=== PATIENT | female | born 1965 | race Caucasian/White ===

== ENCOUNTER 2016-08-20 10:34 | Inpatient (IN) | payer OTHER ==
[~2016-08-20] VITALS: Ht 160 cm; Wt 95.0 kg
[~2016-08-20 10:34] MED LIST: AMLODIPINE BESYL5 MG PO; COREG12.5 MG PO; FERROUS SULFAT325 M1 PO; LOSARTAN POTAS100 MG PO; PANTOPRAZOLE SO40 MG PO; SIMVASTATIN40 MG PO; VICODIN EQUIVAL1 TAB PO
--- NOTE | 2016-08-20 13:33 | ED ORDER SUMMARY ---
..... Patient: KYLE MARVIN OrderSheet [facility] VisitID: [id number] [place] [address] 51y, F Registration Date/Time: 08/20/2016 ORDER SHEET Weight: 95.2 kg (stated) Allergies: Amoxicillin GENERAL ORDERS: CBC w Diff Urgent (10:52 08/20/2016 Rbo Rushing) (Ack 10:57 KHoerner) (11:20 JBoardley R.N.) CMP Urgent (10:08/20/2016 Rob Rushing) (Ack 10:57 HOMAoerner) (11:20 JBoardley R.N.) UA-Culture if indicated Urgent (10:52 08/20/2016 Rob Rushing) (Ack 10:57 Eduard) (11:02 JBoardley R.N.) Amylase Urgent (10:08/20/2016 Rob Rushing) (Ack 10:57 HOMAoerner) (11:20 JBoardley R.N.) Lipase Urgent (10:52 08/20/2016 Rob Rushing) (Ack 10:57 HOMAoechinyerener) (11:20 JBoardley R.N.) MEDICATION ORDERS: IV FLUIDS: IV NS : initial bolus none -, then 1000 mL/hr for X1 (NOW) (10:52 08/20/2016 Rob Rushing) (Ack 10:54 JBoardley R.N.) (11:15 JBoardley R.N.) Zofran IV 4 mg (NOW) (11:18 08/20/2016 JBoardley R.N. per protocol) (11:18 JBoardley R.N.) Demerol IV 25 mg (HIGH ALERT MEDICATION, NOW) (11:18 08/20/2016 JBoardley R.N. per protocol) (11:18 JBoardley R.N.) IV Lactated Ringers : initial bolus none -, then 200 mL/hr (NOW) (12:17 08/20/2016 Rob Rushing) (12:19 JBoardley R.N.) ORDER SHEET NOTES: [Electronically signed by Murtaza Mccarty Dr. (13:35 08/20/2016)] [Electronically signed by Arvin Garcia R.N. (15:59 08/20/2016)] [Electronically locked/signed by Arvin Garcia R.N. (15:59 08/20/2016)]
--- NOTE | 2016-08-20 13:33 | ED ORDER SUMMARY ---
..... Patient: KYLE MARVIN OrderSheet [facility] VisitID: [id number] [place] [address] 51y, F Registration Date/Time: 08/20/2016 ORDER SHEET Weight: 95.2 kg (stated) Allergies: Amoxicillin GENERAL ORDERS: CBC w Diff Urgent (10:52 08/20/2016 Rob Rushing) (Ack 10:57 KHoerner) (11:20 JBoardley R.N.) CMP Urgent (10:08/20/2016 Rob Rushing) (Ack 10:57 HOMAoerner) (11:20 JBoardley R.N.) UA-Culture if indicated Urgent (10:52 08/20/2016 Rob Rushing) (Ack 10:57 Eduard) (11:02 JBoardley R.N.) Amylase Urgent (10:08/20/2016 Rob Rushing) (Ack 10:57 HOMAoerner) (11:20 JBoardley R.N.) Lipase Urgent (10:52 08/20/2016 Rob Rushing) (Ack 10:57 HOMAoechinyerener) (11:20 JBoardley R.N.) MEDICATION ORDERS: IV FLUIDS: IV NS : initial bolus none -, then 1000 mL/hr for X1 (NOW) (10:52 08/20/2016 Rob Rushing) (Ack 10:54 JBoardley R.N.) (11:15 JBoardley R.N.) Zofran IV 4 mg (NOW) (11:18 08/20/2016 JBoardley R.N. per protocol) (11:18 JBoardley R.N.) Demerol IV 25 mg (HIGH ALERT MEDICATION, NOW) (11:18 08/20/2016 JBoardley R.N. per protocol) (11:18 JBoardley R.N.) IV Lactated Ringers : initial bolus none -, then 200 mL/hr (NOW) (12:17 08/20/2016 Rob Rushing) (12:19 JBoardley R.N.) ORDER SHEET NOTES: [Electronically signed by Murtaza Mccarty Dr. (13:35 08/20/2016)] [Electronically signed by Arvin Garcia R.N. (15:59 08/20/2016)] [Electronically locked/signed by Arvin Garcia R.N. (15:59 08/20/2016)]
--- NOTE | 2016-08-20 13:33 | ED NURSING NOTES ---
Clinical Report - Nurses [facility] [address] [place] [address] 08/20/2016 10:34 Patient: KYLE MARVIN TRIAGE Triage time 10:46. Acuity: LEVEL 3. Chief Complaint: ABDOMINAL PAIN. 10:46 08/20/16. 10:46 08/20/16. Alert. No acute distress. ( RUQ pain that started last night at 2130. Pt was seen and [facility] and sent to this ER as pt had elevated blood tests.). SEPSIS SCREEN: Sepsis Screen. Negative (no infection suspected/documented). --10:53 Arvin Garcia R.N. 10:46 08/20/16. BP: 161/89. HR: 82. RR: 18. O2 saturation: 99% on room air. Temp: 98.1 F (oral). Pain level now: 12/08. --10:53 Arvin Garcia R.N. Weight: 95.2 kg stated. Height/Length: 63 inches Per Patient. BMI: 37.2. --10:52 Arvin Garcia R.N. Medications Coreg Oral 12.5 mg, 2x a day. --10:47 Arvin Garcia R.N. Furosemide Oral 20 mg, daily. --10:48 Arvin Garcia R.N. AmLODIPine Besylate Oral 5 mg, daily. --10:48 Arvin Garcia R.N. Medication/allergy information source: the patient. --10:53 Arvin Garcia R.N. Allergies Amoxicillin. --10:48 Arvin Garcia R.N. History Arrived by private vehicle. 10:46 08/20/16. Treatment OUTPATIENT PHYSICAL THERAPIST ASSISTANT: None. PAST MEDICAL HX: The patient has had a hysterectomy. Immunizations not up to date. SOCIAL HX: Never smoker. Occasional alcohol use. No drug use. No recent travel. No infectious disease exposure. No known contact with a sick individual. ABUSE ASSESSMENT: No report of abuse. FALL RISK ASSESSMENT: Fall risk assessment completed. No fall risk identified. NUTRITIONAL RISK ASSESSMENT: The nutritional risk assessment revealed no deficiencies. FUNCTIONAL ASSESSMENT: Functional assessment: no impairments noted. LEARNING NEEDS ASSESSMENT: The learning needs assessment revealed no barriers. SKIN INTEGRITY ASSESSMENT: Skin integrity risk assessment completed. No skin integrity risk identified. --10:53 Arvin Garcia R.N. PROBLEMS: Pancreatitis. Hematoma. Syncope. Pulmonary Embolism. Hypertension. --10:52 Arvin Garcia R.N. ADDITIONAL SURGERIES: Hysterectomy. Parotidectomy. Tumor removal of parotid gland. --10:52 Arvin Garcia R.N. Assessment 10:46 08/20/16. --10:53 Arvin Garcia R.N. Interventions 10:46 08/20/16. 10:46 08/20/16. ID and allergy band on patient. To treatment room. --10:53 Arvin Garcia R.N. PHYSICAL ASSESSMENT 10:53 08/20/16. Ambulatory to room. GENERAL / NEURO / PSYCH: Alert. Oriented X 4. Appears in pain. RESPIRATORY: Respirations not labored. CVS: Capillary refill less than 2 seconds. GI / : Abdominal tenderness in the right upper quadrant. SKIN: Skin is warm and dry. --10:53 Arvin Garcia R.N. NURSING PROGRESS NOTES 10:54 08/20/16. The plan of care for this patient has been created. Pulse oximeter and NIBP monitor placed on patient; monitor alarms on. Patient gowned. Head of bed elevated. Two patient identifiers checked. Call light placed in reach. Side rails up x 2. Bed placed in lowest position. Brakes of bed on. --10:54 Arvin Garcia R.N. 10:54 08/20/16. Patient ready for evaluation- chart flagged and notification provided. --10:54 Arvin Garcia R.N. 11:03 08/20/16. Patient ID band checked for patient name and birthdate: patient confirmed. Instructions provided to collect clean catch urine and patient verbalized understanding. Clean catch urine collected with return of yellow-colored urine; sample sent to lab for urinalysis and culture. Specimen labeled in the presence of the patient. --11:03 Arvin Garcia R.N. 11:05 08/20/2016 Site #1 started via IV in the right antecubital space with an 20g angiocath, with aseptic technique and good blood return; two attempts. Saline lock flushed with 10 mL saline (unable to draw blood). --11:15 Arvin Garcia R.N. 11:15 08/20/2016 Started bag #1 1000 mL IV Fluids IV NS (Saline); at 1000 mL/hr over 1 hour(s) via site #1. Allergies verified and confirmed 5 rights. Completed per protocol. --11:15 Arvin Garcia R.N. 11:18 08/20/2016 Zofran (Ondansetron HCl) IVP 4 mg given over 2 minute(s) via site #1. Allergies verified and confirmed 5 rights. IV patency established. IV site checked: no pain, redness, or swelling. IV flushed thoroughly pre- and post-medication administration. IVP given by RN. --11:18 Arvin Garcia R.N. 11:18 08/20/2016 Demerol (Meperidine HCl) IVP 25 mg given over 2 minute(s) via site #1. Allergies verified and confirmed 5 rights. IV patency established. IV site checked: no pain, redness, or swelling. IV flushed thoroughly pre- and post-medication administration. IVP given by RN. --11:19 Arvin Garcia R.N. 11:08/20/16. ( Labs drawn by labor relations director). --11:21 Arvin Garcia R.N. 11:08/20/16. --11:21 Arvin Garcia R.N. 11:08/20/16. BP: 151/76. HR: 79. RR: 16. O2 saturation: 98% on room air. Pain level now: 12/08. --11:21 Arvin Garcia R.N. 11:08/20/16. Patient and family informed about reason for wait and about plan of care. --11:21 Arvin Garcia R.N. 11:35 08/20/16. --11:35 Arvin Garcia R.N. 11:34 08/20/16. BP: 151/76. HR: 70. RR: 14. O2 saturation: 97% on room air. --11:35 Arvin Garcia R.N. 11:35 08/20/16. Patient informed about reason for wait and about plan of care. --11:35 Arvin Garcia R.N. 11:35 08/20/16. Patient waiting for lab results. --11:35 Arvin Garcia R.N. 11:37 08/20/16. --11:38 Arvin Garcia R.N. 11:37 08/20/16. Pain level now: 09/08. --11:38 Arvin Garcia R.N. 11:38 08/20/16. Reassessment after medication administered. She has had no adverse reaction. Overall patient status is improved- she states feels better. --11:38 Arvin Garcia R.N. 12:04 08/20/16. --12:04 Arvin Garcia R.N. 12:04 08/20/16. BP: 126/68. HR: 69. RR: 14. O2 saturation: 99% on room air. --12:04 Arvin Garcia R.N. 11:56 08/20/2016 IV Fluids IV NS Discontinued: bag #1 infused. Total amount infused: 1000 mL. IV patency established. IV site checked: no pain, redness, or swelling. IV flushed thoroughly. --12:06 Arvin Garcia R.N. 12:06 08/20/16. Patient and family informed about reason for wait and about plan of care. --12:06 Arvin Garcia R.N. 12:14 08/20/2016 Started bag #1 1000 mL IV Fluids IV LACTATED RINGERS; at 200 mL/hr over 5 hour(s) via site #1 via IV pump. Allergies verified and confirmed 5 rights. IV patency established. IV site checked: no pain, redness, or swelling. IV flushed thoroughly pre- and post-medication administration. Completed per protocol. --12:19 Arvin Garcia R.N. 12:20 08/20/16. --12:20 Arvin Garcia R.N. 12:19 08/20/16. BP: 125/70. HR: 75. RR: 14. O2 saturation: 98% on room air. --12:20 Arvin Garcia R.N. 12:20 08/20/16. Patient and family informed about reason for wait and about plan of care. --12:20 Arvin Garcia R.N. 12:20 08/20/16. Patient waiting for lab results. --12:20 Arvin Garcia R.N. 14:24 08/20/16. ( Tried to call report, RN unavailable). --14:24 Arvin Garcia R.N. 14:51 08/20/16. ( Manav form completed). --14:51 Arvin Garcia R.N. DISPOSITION / DISCHARGE 14:24 08/20/16. Patient's personal items include, pants, sweatshirt, no weapons, no meds, no money. --14:24 Arvin Garcia R.N. 14:41 08/20/2016 Site #[address] upon admission; patent. --14:41 Arvin Garcia R.N. 14:42 08/20/16. The goals identified in the patient's plan of care were met. Report was given to a nurse via a phone call. Report included patient's care, treatment, medications, reviewed medication reconcilliation, and condition (including any recent changes or anticipated changes). Report was acknowledged and care was transferred. Bed obtained. FALL RISK ASSESSMENT: Fall risk assessment completed. No fall risk identified. --14:42 Arvin Garcia R.N. 14:41 08/20/16. BP: 123/72. HR: 66. RR: 14. O2 saturation: 99% on room air. Temp: 98 F (oral). Pain level now: 07/11. --14:42 Arvin Garcia R.N. 14:51 08/20/16. Departure time: 14:51. --14:51 Arvin Garcia R.N. Locked/Released at 08/20/2016 15:59 by Arvin Garcia R.N.
--- NOTE | 2016-08-20 13:33 | ED CLINICAL REPORT ---
Clinical Report - Physicians/Mid Levels [facility] [address] [place] [address] 08/20/2016 10:34 Patient: KYLE MARVIN Time Seen: 10:50; initial patient contact. Arrived- By private vehicle. Historian- patient. HISTORY OF PRESENT ILLNESS Chief Complaint: ABDOMINAL PAIN. At its maximum, severity described as moderate. When seen in the E.D., severity described as mild. Modifying factors- worsened by food. Not relieved by anything. It is described as sharp and it is described as located in the epigastric area and radiating to the upper back. This started last night and is still present. It was gradual in onset and has been intermittent. The patient has had nausea, loss of appetite and vomiting. No diarrhea. Similar symptoms previously: Several times. Recent medical care: The patient was seen recently in a clinic. ( Amylase > 2000, lipase 2266, AST/ALT 23/34 Alk Phos 53, WBC 9). REVIEW OF SYSTEMS No constipation, fever or difficulty breathing. She has had chills. All systems otherwise negative, except as recorded above. PAST HISTORY Pancreatitis. Hematoma. Syncope. Pulmonary Embolism. Hypertension. SURGERIES: Hysterectomy. Parotidectomy. Tumor removal of parotid gland. SOCIAL HISTORY Never smoker. Occasional alcohol use. No drug use. ADDITIONAL NOTES The nursing notes have been reviewed with agreement regarding the chief complaint, PMH and patient medications and allergies. PHYSICAL EXAM Vital Signs: 08/20/2016 10:46 BP: 161/89. HR: 82. RR: 18. O2 saturation: 99%. Temp: 98.1 F. Pain level now: 7/10. Have been reviewed. Hypertensive. Heart rate normal. Respiratory rate normal. Temperature normal. Oxygen saturation normal. Appearance: Alert. Oriented X3. No acute distress. Eyes: Eyes normal inspection. No scleral icterus. ENT: Dry mucous membranes present. CVS: Normal heart rate and rhythm. Heart sounds normal. Respiratory: No respiratory distress. Breath sounds normal. Abdomen: Soft. Moderate tenderness in the epigastric area with guarding present. No rebound tenderness or Blank's sign present. Bowel sounds normal. No organomegaly. No mass. Back: Normal inspection. Skin: Normal skin color. No rash. Extremities: No lower extremity edema. Neuro: Oriented X 3. LABS, X-RAYS, AND EKG Laboratory Tests: UA-Culture if indicated: (CATHY: 08/20/2016 10:50) ( [facility] 08/20/2016 11:18) Final results Test Result Flag Units (Reference) URINE COLOR YELLOW URINE APPEARANCE CLEAR URINE GLUCOSE NEGATIVE (NEGATIVE) URINE BILIRUBIN NEGATIVE (NEGATIVE) URINE KETONE NEGATIVE (NEGATIVE) URINE SPECIFIC GRAVITY 1.025 (1.010-1.030) URINE PH 6.0 (5.0-8.0) URINE PROTEIN 3+ (NEGATIVE) URINE UROBILINOGEN 0.2 EU/dL (0.2-1.0) URINE NITRITE NEGATIVE (NEGATIVE) URINE BLOOD NEGATIVE (NEGATIVE) URINE LEUK ESTERASE NEGATIVE (NEGATIVE) URINE RBC NONE SEEN rbc/hpf (0-1) URINE WBC 5-10 wbc/hpf (0-1) URINE EPITHELIAL CELLS 3-5 EPI/hpf (0-5) URINE BACTERIA MODERATE (2+ TO 3+) (NONE SEEN) URINE COMMENT CULTURE INDICATED 10-15 HYALINE CASTS/lpf3+ MUCOUSURINE CULTURES ARE SET-UP BASED ON THE FOLLOWING CRITERIA:POSITIVE NITRITEPOSITIVE LEUKOCYTE ESTERASEGREATER THAN 10 WHITE BLOOD CELLSMODERATE (2+) OR GREATER BACTERIA CBC w Diff: (CATHY: 08/20/2016 11:22) ( [facility] 08/20/2016 11:34) Final results Test Result Flag Units (Reference) WHITE BLOOD COUNT 9.0 K/uL (4.5-11.5) RED BLOOD COUNT 4.77 M/uL (4.00-5.20) HEMOGLOBIN 13.0 gm/dL (12.0-16.0) HEMATOCRIT 38.7 % (36.0-46.0) MEAN CELL VOLUME 81 fL (80-100) MEAN CORPUSCULAR HGB 27 pg (26-34) MEAN CORPUSCULAR HGB CONC 34 g/dL (31-37) RED CELL DISTRIBUTION WIDTH 14.4 % (11.6-14.8) PLATELET COUNT 295 K/uL (150-400) NEUTROPHIL % 71.9 % (50-75) LYMPH % 16.2 L % (25-40) MONO % 10.3 % (3-14) EOSINOPHIL % 1.1 % (0-4) BASOPHIL % 0.5 % (0-2) CMP: (CATHY: 08/20/2016 11:22) ( MsgRcvd 08/20/2016 12:29) Final results Test Result Flag Units (Reference) GLUCOSE 110 mg/dL (70-110) BUN 22 H mg/dL (7-18) CREATININE 1.4 H mg/dL (0.6-1.3) Estimated GFR 41.97 mL/min Estimated GFR- 50.87 mL/min Note: Persistent reduction over 3 months in eGFR<60 mL/min/1.73 m2 defines CKD. Patients with eGFR values>=60 mL/min/1.73 m2 may also have CKD if evidence ofpersistent proteinuria. Additional information may be foundat www.kidney.org. SODIUM 140 mmol/L (136-145) POTASSIUM 3.7 mmol/L (3.5-5.1) CHLORIDE 104 mmol/L (98-107) CARBON DIOXIDE 26 mmol/L (21-32) CALCIUM 9.1 mg/dL (8.5-10.1) TOTAL PROTEIN 7.3 g/dL (6.4-8.2) ALBUMIN 3.6 g/dL (3.3-5.0) BILIRUBIN, TOTAL 0.4 mg/dL (0.0-1.0) ALKALINE PHOSPHATASE 54 U/L (46-116) AST (SGOT) 24 U/L (15-37) ALT (SGPT) 44 U/L (12-78) AMYLASE 1780 H U/L (25-115) LIPASE 56831 H U/L (73-393) . PROGRESS AND PROCEDURES Discussed case with hospitalist, (call returned 13:31 Dr. Em). Reviewed test results and need for additional work-up. Agreed upon treatment plan and decision to place in observation. Health care provider will see patient in hospital. Disposition: Condition: good. CLINICAL IMPRESSION Acute idiopathic pancreatitis. Acute renal insufficiency. INSTRUCTIONS Follow-up: Blood pressure screening was not performed during this visit because the patient has an active diagnosis of hypertension. (Electronically signed by Murtaza Mccarty Dr. 08/20/2016 13:35)
--- NOTE | 2016-08-20 15:59 | ED MED RECONCILIATION SUMMARY ---
Patient: KYLE MARVIN Medication Reconciliation Report [facility] VisitID: [id number] [address] [place] [address] 51y, F Registration Date/Time: 08/20/2016 Weight: 95.2 kg Height/Length: 63 in. BMI: 37.2 ALLERGIES: Amoxicillin The patient's Home Medications are listed below: THE FOLLOWING MEDICATIONS NEED TO BE RECONCILED: AmLODIPine Besylate Oral 5 mg, daily Coreg Oral 12.5 mg, 2x a day Furosemide Oral 20 mg, daily The source(s) of the original Home Medication information: patient The following Medications were given to the patient in the Emergency Department: IV NS IV Fluids bolus 0, then 1000 mL/hr, administered: 08/20/2016 11:15:00 AM Zofran [IVP] IVP 4 mg, administered: 08/20/2016 11:18:00 AM Demerol [IVP] IVP 25 mg, administered: 08/20/2016 11:18:00 AM IV LACTATED RINGERS IV Fluids bolus 0, then 200 mL/hr, administered: 08/20/2016 12:14:00 PM The following Medications were prescribed to the patient: None.
--- NOTE | 2016-08-20 15:59 | ED DISCHARGE INSTRUCTIONS ---
Patient: KYLE MARVIN General Instructions [facility] VisitID: [id number] [address] [place] [address] 51y, F Registration Date/Time: 08/20/2016 Acute idiopathic pancreatitis. Acute renal insufficiency. INSTRUCTIONS Follow-up: Blood pressure screening was not performed during this visit because the patient has an active diagnosis of hypertension. (Electronically signed by Murtaza Mccarty Dr. 08/20/2016 13:35)
--- NOTE | 2016-08-20 15:59 | ED MAR SUMMARY ---
..... Medication Administration Record [facility] [address] [place] [address] Patient: KYLE MARVIN Visit ID: [id number] 51y, F Weight: 95.2 kg Height/Length: 63 in BMI: 37.2 ALLERGIES: Amoxicillin Start 11:15 08/20/2016 Arvin Garcia R.N., Stop 11:56 08/20/2016 Arvin Garcia R.N. Medication Administered: IV NS (SALINE), Dose: IV Fluids over 1 hour(s), Rate: 1000 mL/hr, Dispensed: 1000 mL bag, Site: #1 right AC. Medication Ordered: IV NS : initial bolus none -, then 1000 mL/hr for X1 (NOW). Given 11:18 08/20/2016 Arvin Garcia R.N. Medication Administered: ZOFRAN [IVP] (ONDANSETRON HCL), Dose: 4 mg IVP over 2 minute(s), Site: #1 right AC. Medication Ordered: Zofran IV 4 mg (NOW). Given 11:18 08/20/2016 Arvin Garcia R.N. Medication Administered: DEMEROL [IVP] (MEPERIDINE HCL), Dose: 25 mg IVP over 2 minute(s), Site: #1 right AC. Medication Ordered: Demerol IV 25 mg (HIGH ALERT MEDICATION, NOW). Start 12:14 08/20/2016 Arvin Garcia R.N. Medication Administered: IV LACTATED RINGERS, Dose: IV Fluids over 5 hour(s), Rate: 200 mL/hr, Dispensed: 1000 mL bag, Site: #1 right AC. Medication Ordered: IV Lactated Ringers : initial bolus none -, then 200 mL/hr (NOW).
--- NOTE | 2016-08-20 15:59 | ED MAR SUMMARY ---
..... Medication Administration Record [facility] [address] [place] [address] Patient: KYLE MARVIN Visit ID: [id number] 51y, F Weight: 95.2 kg Height/Length: 63 in BMI: 37.2 ALLERGIES: Amoxicillin Start 11:15 08/20/2016 Arvin Garcia R.N., Stop 11:56 08/20/2016 Arvin Garcia R.N. Medication Administered: IV NS (SALINE), Dose: IV Fluids over 1 hour(s), Rate: 1000 mL/hr, Dispensed: 1000 mL bag, Site: #1 right AC. Medication Ordered: IV NS : initial bolus none -, then 1000 mL/hr for X1 (NOW). Given 11:18 08/20/2016 Arvin Garcia R.N. Medication Administered: ZOFRAN [IVP] (ONDANSETRON HCL), Dose: 4 mg IVP over 2 minute(s), Site: #1 right AC. Medication Ordered: Zofran IV 4 mg (NOW). Given 11:18 08/20/2016 Arvin Garcia R.N. Medication Administered: DEMEROL [IVP] (MEPERIDINE HCL), Dose: 25 mg IVP over 2 minute(s), Site: #1 right AC. Medication Ordered: Demerol IV 25 mg (HIGH ALERT MEDICATION, NOW). Start 12:14 08/20/2016 Arvin Garcia R.N. Medication Administered: IV LACTATED RINGERS, Dose: IV Fluids over 5 hour(s), Rate: 200 mL/hr, Dispensed: 1000 mL bag, Site: #1 right AC. Medication Ordered: IV Lactated Ringers : initial bolus none -, then 200 mL/hr (NOW).
--- NOTE | 2016-08-20 15:59 | ED MED RECONCILIATION SUMMARY ---
Patient: KYLE MARVIN Medication Reconciliation Report [facility] VisitID: [id number] [address] [place] [address] 51y, F Registration Date/Time: 08/20/2016 Weight: 95.2 kg Height/Length: 63 in. BMI: 37.2 ALLERGIES: Amoxicillin The patient's Home Medications are listed below: THE FOLLOWING MEDICATIONS NEED TO BE RECONCILED: AmLODIPine Besylate Oral 5 mg, daily Coreg Oral 12.5 mg, 2x a day Furosemide Oral 20 mg, daily The source(s) of the original Home Medication information: patient The following Medications were given to the patient in the Emergency Department: IV NS IV Fluids bolus 0, then 1000 mL/hr, administered: 08/20/2016 11:15:00 AM Zofran [IVP] IVP 4 mg, administered: 08/20/2016 11:18:00 AM Demerol [IVP] IVP 25 mg, administered: 08/20/2016 11:18:00 AM IV LACTATED RINGERS IV Fluids bolus 0, then 200 mL/hr, administered: 08/20/2016 12:14:00 PM The following Medications were prescribed to the patient: None.
--- NOTE | 2016-08-20 15:59 | ED DISCHARGE INSTRUCTIONS ---
Patient: KYLE MARVIN General Instructions [facility] VisitID: [id number] [address] [place] [address] 51y, F Registration Date/Time: 08/20/2016 Acute idiopathic pancreatitis. Acute renal insufficiency. INSTRUCTIONS Follow-up: Blood pressure screening was not performed during this visit because the patient has an active diagnosis of hypertension. (Electronically signed by Murtaza Mccarty Dr. 08/20/2016 13:35)
[2016-08-20 16:01] VITALS: BP 137/81
--- NOTE | 2016-08-20 16:08 | Progress Note ---
Subjective General Admission History and Physical Examination Patient Name: Jihan Sanz Admission Date: August 20, 2016 Primary Care Provider: Unknown Attending Physician: Jake Em M.D. Admitting Physician: Jake Em M.D. Code Status: Full Code Room: 301 SUBJECTIVE Historian: Patient Reliability: Good Chief Complaint: Abdominal pain History of Present Illness: The patient is a 51-year-old white female with a significant past medical history of hypertension, recurrent pancreatitis, hyperlipidemia, who presented to [facility] emergency department on the day of admission secondary to complaints of abdominal pain. [facility] ER evaluation was consistent with acute pancreatitis. Secondary to the above, the patient was admitted by Jake Em M.D. for further evaluation and treatment. PAST MEDICAL HISTORY Illnesses: 1. Hypertension 2. Hyperlipidemia 3. Recurrent pancreatitis 4. Iron deficiency anemia Allergies: 1. Penicillin 2. Tramadol Medications: 1. Coreg 12.5 mg by mouth twice a day 2. Furosemide 20 mg by mouth daily 3. Amlodipine 5 mg by mouth daily Surgery: 1. Hysterectomy 2. Chronic gland tumor removal Injuries: 1. No significant Hospitalizations: 1. For above surgery and medical problems FAMILY HISTORY Parents: 1. Father, Philip, , 64, hypertension, cancer type unknown, 2. Mother, Latonia, living, 81, hypertension Siblings: 1. Female, Carmen, living, 62, hypertension Children: 1. None Other significant family history: None SOCIAL HISTORY 1. Marital Status: 2. Jehovah'S Witness: None 3. Education: High school 4. 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 Tobacco: None 2. Drugs: None 3. Alcohol: 2 ounces per month 4. Caffeine: One cup coffee per day HEALTH SUPERVISION Item/Test 1. Vision screen: 2011 2. Cholesterol Profile: 2013 3. PSA: Not applicable 4. AURE: Not applicable 5. FOBT: 2013 6. Blood Glucose: 2016 7. Colonoscopy: 2013 8. History and physical exam: 2014 9. Audiogram: No recent 10. Mammogram: No recent 11. Pap/pelvic exam: No recent IMMUNIZATIONS: 1. Pneumococcal: No previous 2. Influenza: No previous 3. Tetanus: No previous ADVANCED DIRECTIVES: 1. Living well: No 2. POLST: No 3. Code Status: Full Code 4. Durable Power Duct Layer Health care: No 5. Donor card: Yes REVIEW OF SYSTEMS Remarkable for those things stated in the history of present illness and past medical history. Seventeen point review of system completed with the following notable findings: General: Abdominal pain Eyes: Decreased visual acuity requiring corrective lenses Cardiovascular: Ankle swelling, hypertension Gastrointestinal: Nausea/vomiting, loss of appetite, abdominal pain Physical Exam Vital Signs / I&Os Vital Signs Date Time Temp Pulse Resp B/P Pulse O2 O2 Flow FiO2 Ox Delivery Rate 08/20 1601 99.0 66 16 137/81 98 Room Air General Appearance Alert, Oriented X3, Cooperative, No acute distress HEENT Atraumatic, PERRLA, EOMI, Moist mucous membranes Lungs Clear to auscultation, Normal air movement Neck Supple, No JVD, No masses Cardiovascular Regular rate and rhythm, Normal S1 and S2, No murmurs, gallops, rubs Abdomen Normal bowel sounds, Soft, No masses, No hepatosplenomegaly, mild epigastic tenderness Extremities No cyanosis, No clubbing, No edema Neurological Cranial nerves intact, Strength 5/5 x4 ext's, No lateralizing signs Psych/Mental Status Mental status normal, Mood normal LAB Results Laboratory Tests 08/20 08/20 1122 1050 Chemistry Plasma Sodium (136 - 145 mmol/L) 140 Plasma Potassium (3.5 - 5.1 mmol/L) 3.7 Plasma Chloride (98 - 107 mmol/L) 104 CO2 (Enzymatic) (21 - 32 mmol/L) 26 BUN (7 - 18 mg/dL) 22 Creatinine (0.6 - 1.3 mg/dL) 1.4 Est GFR ( Amer) (mL/min) 50.87 Est GFR (Non-Af Amer) (mL/min) 41.97 Glucose (70 - 110 mg/dL) 110 Plasma Calcium (8.5 - 10.1 mg/dL) 9.1 Total Bilirubin (0.0 - 1.0 mg/dL) 0.4 AST (15 - 37 U/L) 24 ALT (12 - 78 U/L) 44 Alkaline Phosphatase (46 - 116 U/L) 54 Total Protein (6.4 - 8.2 g/dL) 7.3 Albumin (3.3 - 5.0 g/dL) 3.6 Amylase (25 - 115 U/L) 1780 Lipase (73 - 393 U/L) 29918 Hematology WBC (4.5 - 11.5 K/uL) 9.0 RBC (4.00 - 5.20 M/uL) 4.77 Hgb (12.0 - 16.0 gm/dL) 13.0 Hct (36.0 - 46.0 %) 38.7 MCV (80 - 100 fL) 81 MCH (26 - 34 pg) 27 RDW (11.6 - 14.8 %) 14.4 Neut % (Auto) (50 - 75 %) 71.9 Lymph % (Auto) (25 - 40 %) 16.2 Brantley % (Auto) (3 - 14 %) 10.3 Eos % (Auto) (0 - 4 %) 1.1 Baso % (Auto) (0 - 2 %) 0.5 Plt Count, EDTA (150 - 400 K/uL) 295 PUBS MCHC (31 - 37 g/dL) 34 Urines Urine Color YELLOW Urine Appearance CLEAR Urine pH (5.0 - 8.0) 6.0 Ur Specific Davis (1.010 - 1.030) 1.025 Urine Protein (NEGATIVE) 3+ Urine Ketones (NEGATIVE) NEGATIVE Urine Blood (NEGATIVE) NEGATIVE Urine Nitrite (NEGATIVE) NEGATIVE Urine Bilirubin (NEGATIVE) NEGATIVE Urine Urobilinogen (0.2 - 1.0 EU/dL) 0.2 Ur Leukocyte Esterase (NEGATIVE) NEGATIVE Urine RBC (0 - 1 rbc/hpf) NONE SEEN Urine WBC (0 - 1 wbc/hpf) 5-10 Ur Epithelial Cells (0 - 5 EPI/hpf) 3-5 Urine Bacteria (NONE SEEN) MODERATE (2+ TO 3+) Urine Glucose (NEGATIVE) NEGATIVE Urine Comment CULTURE INDICATED Microbiology Date/Time Procedure - Status Source Growth 08/20 1050 Urine Culture - RECD URINE CC Assessment and Plan Problem List 1. Acute pancreatitis Plan -Patient presents with findings of pancreatitis with elevation of amylase and lipase -IV fluid therapy, pain medications, antiemetics -Nothing by mouth secondary to nausea/vomiting -Ultrasound in a.m. -Check lipid profile -Monitor 2. Hypertension Status Chronic Onset Date Unknown Plan -Blood pressure well controlled -Continue outpatient medical regimen -Monitor -Low-salt diet when patient taking well orally -Weight reduction program 3. Iron deficiency anemia Status Acute Onset Date Unknown Plan -Patient with history of iron deficiency anemia -H&H stable -Check iron profile in a.m. -Monitor 4. Renal insufficiency Plan -Patient with findings of mild renal insufficiency -Monitor Current status: Fair-unstable Anticipated discharge date: Anticipated discharge in 4 days Anticipated discharge placement: Home Patient care time: Time spent in chart review, patient interview, physical exam, CPOE, and care documentation: 70 minutes Visit to patient today: 2 Complexity of care: High E&M Codes Admission: Inpt-High/[id number]
--- NOTE | 2016-08-20 16:08 | Progress Note ---
Subjective General Admission History and Physical Examination Patient Name: Jihan Sanz Admission Date: August 20, 2016 Primary Care Provider: Unknown Attending Physician: Jake Em M.D. Admitting Physician: Jake Em M.D. Code Status: Full Code Room: 301 SUBJECTIVE Historian: Patient Reliability: Good Chief Complaint: Abdominal pain History of Present Illness: The patient is a 51-year-old white female with a significant past medical history of hypertension, recurrent pancreatitis, hyperlipidemia, who presented to [facility] emergency department on the day of admission secondary to complaints of abdominal pain. [facility] ER evaluation was consistent with acute pancreatitis. Secondary to the above, the patient was admitted by Jake Em M.D. for further evaluation and treatment. PAST MEDICAL HISTORY Illnesses: 1. Hypertension 2. Hyperlipidemia 3. Recurrent pancreatitis 4. Iron deficiency anemia Allergies: 1. Penicillin 2. Tramadol Medications: 1. Coreg 12.5 mg by mouth twice a day 2. Furosemide 20 mg by mouth daily 3. Amlodipine 5 mg by mouth daily Surgery: 1. Hysterectomy 2. Chronic gland tumor removal Injuries: 1. No significant Hospitalizations: 1. For above surgery and medical problems FAMILY HISTORY Parents: 1. Father, Philip, , 64, hypertension, cancer type unknown, 2. Mother, Latonia, living, 81, hypertension Siblings: 1. Female, Carmen, living, 62, hypertension Children: 1. None Other significant family history: None SOCIAL HISTORY 1. Marital Status: 2. Hoahaoism: None 3. Education: High school 4. 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 Tobacco: None 2. Drugs: None 3. Alcohol: 2 ounces per month 4. Caffeine: One cup coffee per day HEALTH SUPERVISION Item/Test 1. Vision screen: 2011 2. Cholesterol Profile: 2013 3. PSA: Not applicable 4. AURE: Not applicable 5. FOBT: 2013 6. Blood Glucose: 2016 7. Colonoscopy: 2013 8. History and physical exam: 2014 9. Audiogram: No recent 10. Mammogram: No recent 11. Pap/pelvic exam: No recent IMMUNIZATIONS: 1. Pneumococcal: No previous 2. Influenza: No previous 3. Tetanus: No previous ADVANCED DIRECTIVES: 1. Living well: No 2. POLST: No 3. Code Status: Full Code 4. Durable Power Documentation Spec Health care: No 5. Donor card: Yes REVIEW OF SYSTEMS Remarkable for those things stated in the history of present illness and past medical history. Seventeen point review of system completed with the following notable findings: General: Abdominal pain Eyes: Decreased visual acuity requiring corrective lenses Cardiovascular: Ankle swelling, hypertension Gastrointestinal: Nausea/vomiting, loss of appetite, abdominal pain Physical Exam Vital Signs / I&Os Vital Signs Date Time Temp Pulse Resp B/P Pulse O2 O2 Flow FiO2 Ox Delivery Rate 08/20 1601 99.0 66 16 137/81 98 Room Air General Appearance Alert, Oriented X3, Cooperative, No acute distress HEENT Atraumatic, PERRLA, EOMI, Moist mucous membranes Lungs Clear to auscultation, Normal air movement Neck Supple, No JVD, No masses Cardiovascular Regular rate and rhythm, Normal S1 and S2, No murmurs, gallops, rubs Abdomen Normal bowel sounds, Soft, No masses, No hepatosplenomegaly, mild epigastic tenderness Extremities No cyanosis, No clubbing, No edema Neurological Cranial nerves intact, Strength 5/5 x4 ext's, No lateralizing signs Psych/Mental Status Mental status normal, Mood normal LAB Results Laboratory Tests 08/20 08/20 1122 1050 Chemistry Plasma Sodium (136 - 145 mmol/L) 140 Plasma Potassium (3.5 - 5.1 mmol/L) 3.7 Plasma Chloride (98 - 107 mmol/L) 104 CO2 (Enzymatic) (21 - 32 mmol/L) 26 BUN (7 - 18 mg/dL) 22 Creatinine (0.6 - 1.3 mg/dL) 1.4 Est GFR ( Amer) (mL/min) 50.87 Est GFR (Non-Af Amer) (mL/min) 41.97 Glucose (70 - 110 mg/dL) 110 Plasma Calcium (8.5 - 10.1 mg/dL) 9.1 Total Bilirubin (0.0 - 1.0 mg/dL) 0.4 AST (15 - 37 U/L) 24 ALT (12 - 78 U/L) 44 Alkaline Phosphatase (46 - 116 U/L) 54 Total Protein (6.4 - 8.2 g/dL) 7.3 Albumin (3.3 - 5.0 g/dL) 3.6 Amylase (25 - 115 U/L) 1780 Lipase (73 - 393 U/L) 10326 Hematology WBC (4.5 - 11.5 K/uL) 9.0 RBC (4.00 - 5.20 M/uL) 4.77 Hgb (12.0 - 16.0 gm/dL) 13.0 Hct (36.0 - 46.0 %) 38.7 MCV (80 - 100 fL) 81 MCH (26 - 34 pg) 27 RDW (11.6 - 14.8 %) 14.4 Neut % (Auto) (50 - 75 %) 71.9 Lymph % (Auto) (25 - 40 %) 16.2 Day % (Auto) (3 - 14 %) 10.3 Eos % (Auto) (0 - 4 %) 1.1 Baso % (Auto) (0 - 2 %) 0.5 Plt Count, EDTA (150 - 400 K/uL) 295 PUBS MCHC (31 - 37 g/dL) 34 Urines Urine Color YELLOW Urine Appearance CLEAR Urine pH (5.0 - 8.0) 6.0 Ur Specific Fay (1.010 - 1.030) 1.025 Urine Protein (NEGATIVE) 3+ Urine Ketones (NEGATIVE) NEGATIVE Urine Blood (NEGATIVE) NEGATIVE Urine Nitrite (NEGATIVE) NEGATIVE Urine Bilirubin (NEGATIVE) NEGATIVE Urine Urobilinogen (0.2 - 1.0 EU/dL) 0.2 Ur Leukocyte Esterase (NEGATIVE) NEGATIVE Urine RBC (0 - 1 rbc/hpf) NONE SEEN Urine WBC (0 - 1 wbc/hpf) 5-10 Ur Epithelial Cells (0 - 5 EPI/hpf) 3-5 Urine Bacteria (NONE SEEN) MODERATE (2+ TO 3+) Urine Glucose (NEGATIVE) NEGATIVE Urine Comment CULTURE INDICATED Microbiology Date/Time Procedure - Status Source Growth 08/20 1050 Urine Culture - RECD URINE CC Assessment and Plan Problem List 1. Acute pancreatitis Plan -Patient presents with findings of pancreatitis with elevation of amylase and lipase -IV fluid therapy, pain medications, antiemetics -Nothing by mouth secondary to nausea/vomiting -Ultrasound in a.m. -Check lipid profile -Monitor 2. Hypertension Status Chronic Onset Date Unknown Plan -Blood pressure well controlled -Continue outpatient medical regimen -Monitor -Low-salt diet when patient taking well orally -Weight reduction program 3. Iron deficiency anemia Status Acute Onset Date Unknown Plan -Patient with history of iron deficiency anemia -H&H stable -Check iron profile in a.m. -Monitor 4. Renal insufficiency Plan -Patient with findings of mild renal insufficiency -Monitor Current status: Fair-unstable Anticipated discharge date: Anticipated discharge in 4 days Anticipated discharge placement: Home Patient care time: Time spent in chart review, patient interview, physical exam, CPOE, and care documentation: 70 minutes Visit to patient today: 2 Complexity of care: High E&M Codes Admission: Inpt-High/[id number]
[2016-08-20] MEDS ORDERED: COREG12.5 MG PO (16:13)
[2016-08-20] MEDS ORDERED: AMLODIPINE BESYL5 MG PO (16:13)
[2016-08-20] MEDS ORDERED: FUROSEMIDE20 MG PO (16:15)
[2016-08-20 18:29] VITALS: BP 136/69
[2016-08-20 22:04] VITALS: BP 144/74
[2016-08-21 02:15] VITALS: BP 121/74
[2016-08-21 06:34] VITALS: BP 132/74
--- NOTE | 2016-08-21 07:50 | Progress Note ---
Subjective General Note Date: August 21, 2016 Admission Date: August 20, 2016 Hospital Day: 2 PCP: Saad Monsalve M.D. Status: Inpatient Advanced Directive: Full Code Room: 301 Brief History: The patient is a 51-year-old white female with a significant past medical history of hypertension, recurrent pancreatitis, hyperlipidemia, who presented to [facility] emergency department on the day of admission secondary to complaints of abdominal pain. [facility] ER evaluation was consistent with acute pancreatitis. Secondary to the above, the patient was admitted by Jake Em M.D. for further evaluation and treatment. For other history present illness, past medical history, family history, social history, review of systems, and admission physical examination please see the patient's history and physical examination and ER visit note in the patient's medical record. Subjective: The patient states her status is improved today. Abdominal pain improved. Persistent mild nausea. Patient requests: None Medications and Allergies Medications Current Medications Sig/Lotus Start time Last Medication Dose Route Stop Time Status Admin Amlodipine Besylate 5 MG DAILY 08/21 0900 AC PO Pantoprazole Sodium 40 MG DAILY@0600 08/21 0600 AC 08/21 IV 0507 Ondansetron HCl 4 MG Q4H PRN 08/20 2215 AC 08/21 IV 0433 Carvedilol 12.5 MG BIDWC 08/20 205 AC 08/20 PO 2231 Ceftriaxone Sodium/ 50 ML DAILY 08/21 1999 AC 08/20 Dextrose IV 2042 Acetaminophen 650 MG Q6H PRN 08/20 1615 AC PO Hydromorphone HCl 2 MG Q2H PRN 08/20 1615 AC IV Hydromorphone HCl 1 MG Q2H PRN 08/20 1615 AC 08/21 IV 0520 Naloxone HCl 0.4 MG PRN PRN 08/20 1615 AC IV Sodium Chloride 1,000 ML ASDIRECTED 08/20 1615 AC 08/21 IV 0449 Enoxaparin Sodium 40 MG QAM 08/20 1604 AC 08/20 SC 1632 Allergies Coded Allergies: Amoxicillin (From Amoxil) (Severe, SWELLING FACE AND THROAT 04/19/15) Tramadol (Intermediate, SEVERE NAUSEA 08/20/16) Physical Exam Vital Signs / I&Os Vital Signs Date Time Temp Pulse Resp B/P Pulse O2 O2 Flow FiO2 Ox Delivery Rate 08/21 0634 98.2 76 21 132/74 96 Nasal 3.0 Cannula 08/21 0215 98.1 70 14 121/74 100 Nasal 3.0 Cannula 08/20 2231 87 08/20 2204 97.7 81 12 144/74 94 Nasal 2.0 Cannula 08/21 2007 Nasal Cannula 08/20 1829 98.6 75 12 136/69 97 Nasal 1.0 Cannula 08/20 1630 2.0 08/20 1601 99.0 66 16 137/81 98 Room Air I&O 08/21 0000 08/20 1600 08/20 0800 Intake Total 332 Output Total 1225 Balance -893 General Appearance Alert, Oriented X3, Cooperative, No acute distress Lungs Clear to auscultation, Normal air movement Cardiovascular Regular rate and rhythm, Normal S1 and S2, No murmurs, gallops, rubs Abdomen Normal bowel sounds, Soft, mild epigastric tenderness Extremities No cyanosis, No clubbing, No edema Neurological Grossly normal Psych/Mental Status Mental status normal, Mood normal LAB Results Laboratory Tests 08/21 08/21 08/20 08/20 0415 0415 1122 1050 Chemistry Plasma Sodium (136 - 145 mmol/L) 143 140 Plasma Potassium (3.5 - 5.1 mmol/L) 3.7 3.7 Plasma Chloride (98 - 107 mmol/L) 106 104 CO2 (Enzymatic) (21 - 32 mmol/L) 26 26 BUN (7 - 18 mg/dL) 15 22 Creatinine (0.6 - 1.3 mg/dL) 1.2 1.4 Est GFR ( Amer) (mL/min) >60 50.87 Est GFR (Non-Af Amer) (mL/min) 50.14 41.97 Glucose (70 - 110 mg/dL) 93 110 Plasma Calcium (8.5 - 10.1 mg/dL) 8.6 9.1 Total Bilirubin (0.0 - 1.0 mg/dL) 0.3 0.4 AST (15 - 37 U/L) 15 24 ALT (12 - 78 U/L) 35 44 Alkaline Phosphatase (46 - 116 U/L) 47 54 Total Protein (6.4 - 8.2 g/dL) 6.5 7.3 Albumin (3.3 - 5.0 g/dL) 3.2 3.6 Triglycerides (30 - 200 mg/dL) 256 Cholesterol (140 - 200 mg/dL) 245 LDL Cholesterol, Calc (mg/dL) 152 HDL Cholesterol (32 - 96 mg/dL) 42 LDL/HDL Ratio 3.6 Cholesterol/HDL Ratio 5.8 Coronary Risk Interp (0.4 - 1.0) 1.2 Amylase (25 - 115 U/L) 581 1780 Lipase (73 - 393 U/L) 2125 34036 Hematology WBC (4.5 - 11.5 K/uL) 7.4 9.0 RBC (4.00 - 5.20 M/uL) 4.31 4.77 Hgb (12.0 - 16.0 gm/dL) 11.6 13.0 Hct (36.0 - 46.0 %) 35.3 38.7 MCV (80 - 100 fL) 82 81 MCH (26 - 34 pg) 27 27 RDW (11.6 - 14.8 %) 14.4 14.4 Neut % (Auto) (50 - 75 %) 57.1 71.9 Lymph % (Auto) (25 - 40 %) 30.4 16.2 Faulk % (Auto) (3 - 14 %) 10.2 10.3 Eos % (Auto) (0 - 4 %) 2.0 1.1 Baso % (Auto) (0 - 2 %) 0.3 0.5 Plt Count, EDTA (150 - 400 K/uL) 243 295 PUBS MCHC (31 - 37 g/dL) 33 34 Urines Urine Color YELLOW Urine Appearance CLEAR Urine pH (5.0 - 8.0) 6.0 Ur Specific Bradford (1.010 - 1.030) 1.025 Urine Protein (NEGATIVE) 3+ Urine Ketones (NEGATIVE) NEGATIVE Urine Blood (NEGATIVE) NEGATIVE Urine Nitrite (NEGATIVE) NEGATIVE Urine Bilirubin (NEGATIVE) NEGATIVE Urine Urobilinogen (0.2 - 1.0 EU/dL) 0.2 Ur Leukocyte Esterase (NEGATIVE) NEGATIVE Urine RBC (0 - 1 rbc/hpf) NONE SEEN Urine WBC (0 - 1 wbc/hpf) 5-10 Ur Epithelial Cells (0 - 5 EPI/hpf) 3-5 Urine Bacteria (NONE SEEN) MODERATE (2+ TO 3+) Urine Glucose (NEGATIVE) NEGATIVE Urine Comment CULTURE INDICATED Microbiology Date/Time Procedure - Status Source Growth 08/20 1630 MRSA Screen - RECD NASAL 08/20 1050 Urine Culture - RECD URINE CC Imaging Abdominal Ultrasound IMPRESSION: 1. Mildly coarse hepatic echotexture, chronic. This suggests intrinsic liver disease or fatty infiltration. 2. Mildly prominent hyperechoic pancreas No other sonographic signs of complication of pancreatitis. Dictated by: LUCIANO MARTINEZ MD D: ZEINAB;08/21/16 1910 Assessment and Plan Problem List 1. Acute pancreatitis Plan -Status improved -Less pain -Persistent nausea mild -Amylase/lipase improved -Continue present therapy with IV fluids, pain meds, antiemetics -Possibly begin clear liquids in a.m. with improved status 2. Hypertension Status Chronic Onset Date Unknown Plan -Blood pressure well controlled -Blood pressure 135/70 mmHg -Continue present therapy -Monitor 3. Iron deficiency anemia Status Acute Onset Date Unknown Plan -Patient with history of iron deficiency anemia -Iron studies obtained show normal percent saturation -H&H 11.6/35.3 -Iron deficiency resolved -Monitor 4. Renal insufficiency Plan -Patient presented with elevated BUN/creatinine -BUN/creatinine normalized -BUN/creatinine 15/1.2 -Monitor Current status: Fair, improved Anticipated discharge date: Anticipated discharge in 2-3 days Anticipated discharge placement: Home Patient care time: Time spent in chart review, patient interview, physical exam, CPOE, and care documentation: 25 minutes Visit to patient today: 1 Complexity of care: Moderate E&M Codes Rounding: Inpt-Moderate/[id number]
[2016-08-21 10:09] VITALS: BP 133/99
--- NOTE | 2016-08-21 13:31 | DIAGNOSTIC IMAGING REPORT ---
PROCEDURE: US ABDOMEN ULTRASOUND-COMPLETE INDICATION: pancreatitis TECHNIQUE: Pinto scale and color Doppler sonographic images of the abdomen were obtained without comparison. COMPARISON: Abdominal ultrasound 01/27/[address] 04/19/2015 FINDINGS: The liver is normal size with mildly increased echogenicity. No mass or biliary dilatation. The gallbladder is normal without stones or sludge. Normal wall thickness at 2.1 mm. No pericholecystic fluid or Blank's sign. The pancreas is mildly enlarged and echogenic with indistinct pancreatic margins. The visible portion of the inferior vena cava, abdominal aorta, and portal vein appear normal with appropriate direction of flow in the portal vein. The right kidney contains a tiny exophytic cyst measuring 14 mm. The left kidney is 11.3 cm in length and also has a 14 mm cyst. No free fluid in the right upper quadrant. IMPRESSION: 1. Mildly coarse hepatic echotexture, chronic. This suggests intrinsic liver disease or fatty infiltration. 2. Mildly prominent hyperechoic pancreas No other sonographic signs of complication of pancreatitis.
[2016-08-21 14:34] VITALS: BP 136/74
[2016-08-21 17:57] VITALS: BP 135/70
[2016-08-21 23:28] VITALS: BP 126/73
[2016-08-22 03:36] VITALS: BP 141/67
[2016-08-22 07:00] VITALS: BP 132/68
[2016-08-22 10:21] VITALS: BP 117/85
[2016-08-22 14:20] VITALS: BP 122/73
--- NOTE | 2016-08-22 17:37 | Progress Note ---
Subjective General Note Date: August 22, 2016 Admission Date: August 20, 2016 Hospital Day: 3 PCP: Saad Monsalve M.D. Status: Inpatient Advanced Directive: Full Code Room: 301 Brief History: The patient is a 51-year-old white female with a significant past medical history of hypertension, recurrent pancreatitis, hyperlipidemia, who presented to [facility] emergency department on the day of admission secondary to complaints of abdominal pain. [facility] ER evaluation was consistent with acute pancreatitis. Secondary to the above, the patient was admitted by Jake Em M.D. for further evaluation and treatment. For other history present illness, past medical history, family history, social history, review of systems, and admission physical examination please see the patient's history and physical examination and ER visit note in the patient's medical record. Subjective: The patient states her status is improved today. Abdominal pain improved, and no pain at this time. Nausea much improved. Patient requests: None Medications and Allergies Medications Current Medications Sig/Lotus Start time Last Medication Dose Route Stop Time Status Admin Cephalexin 500 MG TID 08/22 1400 AC 08/22 PO 1438 Ondansetron HCl See Dose Q4H PRN 08/21 1215 AC Insts (1) IV Promethazine HCl 6.25 MG Q6H PRN 08/21 1215 AC IV Amlodipine Besylate 5 MG DAILY 08/21 0900 AC 08/22 PO 1008 Pantoprazole Sodium 40 MG DAILY@0600 08/21 0600 AC 08/22 IV 0522 Carvedilol 12.5 MG BIDWC 08/20 2050 AC 08/22 PO 1008 Acetaminophen 650 MG Q6H PRN 08/20 1615 AC PO Hydromorphone HCl 2 MG Q2H PRN 08/20 1615 AC IV Hydromorphone HCl 1 MG Q2H PRN 08/20 1615 AC 08/21 IV 0520 Naloxone HCl 0.4 MG PRN PRN 08/20 1615 AC IV Sodium Chloride 1,000 ML ASDIRECTED 08/20 161 AC 08/22 IV 1438 Enoxaparin Sodium 40 MG QAM 08/20 1604 AC 08/22 SC 1008 Dose Instructions: (1)Ondansetron HCl: 4 - 8 MG Allergies Coded Allergies: Amoxicillin (From Amoxil) (Severe, SWELLING FACE AND THROAT 04/19/15) Tramadol (Intermediate, SEVERE NAUSEA 08/20/16) Physical Exam Vital Signs / I&Os Vital Signs Date Time Temp Pulse Resp B/P Pulse O2 O2 Flow FiO2 Ox Delivery Rate 08/22 1420 98.8 75 15 122/73 99 Room Air 08/22 1021 98.6 73 18 117/85 99 Room Air 0.0 08/22 1008 77 08/22 0700 98.6 77 19 132/68 99 Room Air 0.0 08/22 0336 98.6 66 19 141/67 97 Room Air 08/21 2328 98.6 69 18 126/73 96 Room Air 08/21 2227 3.0 08/21 1930 Room Air 08/21 1757 99.3 76 15 135/70 99 I&O 08/22 0000 08/21 1600 08/21 0800 Intake Total 2901 1000 Output Total 1600 2450 550 Balance 1301 -2450 450 General Appearance Alert, Oriented X3, Cooperative, No acute distress Lungs Clear to auscultation, Normal air movement Cardiovascular Regular rate and rhythm, Normal S1 and S2 Abdomen Normal bowel sounds, Soft, No tenderness Extremities No cyanosis, No clubbing, No edema Neurological Cranial nerves intact, Strength 5/5 x4 ext's, No lateralizing signs Psych/Mental Status Mental status normal, Mood normal LAB Results Laboratory Tests 08/22 0400 Chemistry Plasma Sodium (136 - 145 mmol/L) 144 Plasma Potassium (3.5 - 5.1 mmol/L) 3.3 Plasma Chloride (98 - 107 mmol/L) 107 CO2 (Enzymatic) (21 - 32 mmol/L) 24 BUN (7 - 18 mg/dL) 10 Creatinine (0.6 - 1.3 mg/dL) 1.2 Est GFR ( Amer) (mL/min) >60 Est GFR (Non-Af Amer) (mL/min) 50.14 Glucose (70 - 110 mg/dL) 79 Plasma Calcium (8.5 - 10.1 mg/dL) 8.6 Amylase (25 - 115 U/L) 151 Assessment and Plan Problem List 1. Acute pancreatitis Plan -Much improved -Amylase 151 -Begin clear liquid diet -Possible discharge in a.m. 2. Hypertension Status Chronic Onset Date Unknown Plan -Blood pressure well controlled -BP 117/85 mmHg -Low-salt diet when taking well orally -Continue present therapy 3. UTI (urinary tract infection) Status Acute Onset Date Unknown Plan -Patient with findings of UTI with Escherichia coli -Sensitive to Keflex -Switch from Rocephin to Keflex 500 mg by mouth 3 times a day -Monitor 4. Renal insufficiency Plan -Resolved -BUN/creatinine 10/1.2 5. Iron deficiency anemia Status Acute Onset Date Unknown Plan -Resolved -Iron studies showed no signs of iron deficiency anemia 6. Hypokalemia Status Acute Onset Date Unknown Plan -Patient with findings of mild hypercalcemia -Potassium 3.3 -KCl 20 mEq by mouth now Current status: Fair, improved Anticipated discharge date: Anticipated discharge in 24 hours Anticipated discharge placement: Home Patient care time: Time spent in chart review, patient interview, physical exam, CPOE, and care documentation: 25 minutes Visit to patient today: 1 Complexity of care: Moderate E&M Codes Rounding: Inpt-Moderate/[id number]
[2016-08-22 18:58] VITALS: BP 113/75
[2016-08-22 22:38] VITALS: BP 142/79
[2016-08-23 03:36] VITALS: BP 156/79
[2016-08-23 06:20] VITALS: BP 145/77
--- NOTE | 2016-08-23 07:45 | Discharge Summary ---
Discharge Summary Report Admit Date 08/20/16 Discharge Date 08/23/16 Admission Diagnosis 1. Pancreatitis 2. Hypertension 3. UTI 4. Renal insufficiency 5. Iron deficiency anemia 6. Hypokalemia Discharge Diagnosis 1. Pancreatitis 2. Hypertension 3. UTI 4. Renal insufficiency-resolved 5. Iron deficiency anemia-resolved 6. Hypokalemia-resolved Brief History The patient is a 51-year-old white female with a significant past medical history of hypertension, recurrent pancreatitis, hyperlipidemia, who presented to [facility] emergency department on the day of admission secondary to complaints of abdominal pain. [facility] ER evaluation was consistent with acute pancreatitis. Secondary to the above, the patient was admitted by Jake Em M.D. for further evaluation and treatment. For other history present illness, past medical history, family history, social history, review of systems, and admission physical examination please see the patient's history and physical examination and ER visit note in the patient's medical record. Hospital Course The following problems and their management were noted during the patient's hospitalization: 1. Pancreatitis The patient presented with findings of pancreatitis. Symptoms resolved rather rapidly with conservative therapy. The patient had complete resolution of abdominal pain by discharge. Amylase had normalized. No definitive cause of pancreatitis identified. I have recommended the patient follow up [facility] GI department for further evaluation. She will see her PCP next week for scheduling of GI evaluation. 2. Hypertension Stable. Adequate control. Low-salt diet. Continue outpatient medical regimen. 3. UTI Patient with findings of UTI. Escherichia coli. Sensitive to Keflex. Patient discharged on Keflex for completion of course of therapy. Outpatient follow-up with PCP next week. 4. Renal insufficiency-resolved Patient showed mild renal insufficiency-probable prerenal azotemia on admission. Resolved during the patient's hospital stay. 5. Iron deficiency anemia-resolved The patient has a history of iron deficiency anemia. Iron studies within normal limits. Outpatient follow-up with PCP. 6. Hypokalemia-resolved The patient had findings of mild hypokalemia. This resolved during her hospital stay. General Appearance Alert, Oriented X3, Cooperative, No acute distress Lungs Clear to auscultation Cardiovascular Regular Rate, Normal S1, Normal S2 Abdomen Normal bowel sounds, Soft, No tenderness Neurological Grossly normal Psych/Mental Status Mental status NL, Mood NL Discharge Instructions/Meds For other recommendations regarding discharge diet, activity, followup, and discharge medications please see the patient's discharge instructions. Discharge condition: Good, improved Greater than 30 min. was spent in the patient's discharge preparation including discharge interview and physical examination, progress note, discharge instructions, and discharge summary The patient was interviewed and examined on the day of discharge. E&M Codes Discharge: Inpt >30 min spent/[id number]
--- NOTE | 2016-08-23 07:45 | Discharge Summary ---
Discharge Summary Report Admit Date 08/20/16 Discharge Date 08/23/16 Admission Diagnosis 1. Pancreatitis 2. Hypertension 3. UTI 4. Renal insufficiency 5. Iron deficiency anemia 6. Hypokalemia Discharge Diagnosis 1. Pancreatitis 2. Hypertension 3. UTI 4. Renal insufficiency-resolved 5. Iron deficiency anemia-resolved 6. Hypokalemia-resolved Brief History The patient is a 51-year-old white female with a significant past medical history of hypertension, recurrent pancreatitis, hyperlipidemia, who presented to [facility] emergency department on the day of admission secondary to complaints of abdominal pain. [facility] ER evaluation was consistent with acute pancreatitis. Secondary to the above, the patient was admitted by Jake Em M.D. for further evaluation and treatment. For other history present illness, past medical history, family history, social history, review of systems, and admission physical examination please see the patient's history and physical examination and ER visit note in the patient's medical record. Hospital Course The following problems and their management were noted during the patient's hospitalization: 1. Pancreatitis The patient presented with findings of pancreatitis. Symptoms resolved rather rapidly with conservative therapy. The patient had complete resolution of abdominal pain by discharge. Amylase had normalized. No definitive cause of pancreatitis identified. I have recommended the patient follow up [facility] GI department for further evaluation. She will see her PCP next week for scheduling of GI evaluation. 2. Hypertension Stable. Adequate control. Low-salt diet. Continue outpatient medical regimen. 3. UTI Patient with findings of UTI. Escherichia coli. Sensitive to Keflex. Patient discharged on Keflex for completion of course of therapy. Outpatient follow-up with PCP next week. 4. Renal insufficiency-resolved Patient showed mild renal insufficiency-probable prerenal azotemia on admission. Resolved during the patient's hospital stay. 5. Iron deficiency anemia-resolved The patient has a history of iron deficiency anemia. Iron studies within normal limits. Outpatient follow-up with PCP. 6. Hypokalemia-resolved The patient had findings of mild hypokalemia. This resolved during her hospital stay. General Appearance Alert, Oriented X3, Cooperative, No acute distress Lungs Clear to auscultation Cardiovascular Regular Rate, Normal S1, Normal S2 Abdomen Normal bowel sounds, Soft, No tenderness Neurological Grossly normal Psych/Mental Status Mental status NL, Mood NL Discharge Instructions/Meds For other recommendations regarding discharge diet, activity, followup, and discharge medications please see the patient's discharge instructions. Discharge condition: Good, improved Greater than 30 min. was spent in the patient's discharge preparation including discharge interview and physical examination, progress note, discharge instructions, and discharge summary The patient was interviewed and examined on the day of discharge. E&M Codes Discharge: Inpt >30 min spent/[id number]
--- NOTE | 2016-08-23 09:34 | Provider's Discharge Care Plan ---
Problem, Goal, Plan Problem List 1. Acute pancreatitis Goals: Improve disease control, Prevent disease progress Instructions: Follow up as directed, Take meds as directed, Follow up with your family physician to schedule follow up with [facility]. 2. Hypertension Goals: Improve disease control, Prevent disease progress Instructions: Follow up as directed, Take meds as directed 3. UTI (urinary tract infection) Goals: Improve disease control, Prevent disease progress Instructions: Follow up as directed, Take meds as directed
[2016-08-23] MEDS ORDERED: CEPHALEXIN500 MG PO (09:35)
[2016-08-23 10:22] VITALS: BP 122/74
== END 2016-08-23 11:37 | disposition home or self-care (01) | DRG 439 ==
LOC: ED SRH 10:34 → TRANS SRH 13:37 → CC SRH 15:10
PROVIDERS: ADMIT Family Medicine
DX: K85.00 Idiopathic acute pancreatitis without necrosis or infection (principal); N39.0 Urinary tract infection, site not specified; B96.20 Unspecified Escherichia coli [E. coli] as the cause of diseases classified elsewhere; E87.6 Hypokalemia; N28.9 Disorder of kidney and ureter, unspecified; D50.9 Iron deficiency anemia, unspecified; I10 Essential (primary) hypertension
CPT/HCPCS: 90004; 90047; 90074; 90100; 90148; 90469; 92132; 92235; 92530; 92668; 92670; 92690; 95059